=== PATIENT | female | born 1980 | race Caucasian/White ===

== ENCOUNTER → 2018-07-24 13:00 | Outpatient (CLI) | payer OTHER, SELFPAY | DX: Z23 Encounter for immunization (principal) | CPT/HCPCS: 90471; 90686 ==

== ENCOUNTER 2018-08-12 18:24 | Emergency (ER) | payer OTHER, SELFPAY ==
[2018-08-12 18:33] VITALS: BP 119/74; PULSE 70; RESP 16; TEMP 37; O2SAT 99; BMI 34.9
--- NOTE | 2018-08-12 18:37 | DI.RAD.S_ITS ---
PROCEDURE: XR FOOT RT MIN 3V INDICATIONS: fall TECHNIQUE: 3 views of the foot were acquired. COMPARISON: None. FINDINGS: Bones: No fractures or dislocations. No suspicious bony lesions. Soft tissues: No tibiotalar joint effusion. Achilles tendon appears normal. IMPRESSION: No acute fracture or dislocation of the right foot. Consider followup radiographs in 7-10 days if there is continued clinical concern. Dictated by: Emmanuel Myles M.D. on 08/12/2018 at 20:21 Approved by: Emmanuel Myles M.D. on 08/12/2018 at 20:23
--- NOTE | 2018-08-12 18:37 | DI.RAD.S_ITS ---
PROCEDURE: XR ANKLE RT MIN 3V INDICATIONS: fall TECHNIQUE: 3 views of the ankle were acquired. COMPARISON: None. FINDINGS: Bones: No fractures or dislocations. Ankle mortise is normally aligned. No suspicious bony lesions. Soft tissues: No tibiotalar joint effusion. Achilles tendon appears normal. IMPRESSION: No acute fracture or dislocation of the right ankle. Consider followup ankle radiographs in 7-10 days if there is continued clinical concern for fracture. Dictated by: Emmanuel Myles M.D. on 08/12/2018 at 20:18 Approved by: Emmanuel Myles M.D. on 08/12/2018 at 20:21
[2018-08-12 19:00] VITALS: PULSE 79
--- NOTE | 2018-08-12 19:10 | ED.LOWEXIN ---
HPI - Extremity Injury (Lower) General Chief Complaint: Extremity Injury, Lower Stated Complaint: right side ankle injury Time Seen by Provider: 08/12/18 18:35 Source: patient and family Mode of arrival: ambulatory Limitations: no limitations History of Present Illness HPI Narrative: 38-year-old female, nonsmoker otherwise healthy presents with chief complaint of right foot and ankle pain after an injury this afternoon. She was wearing socks at [employer] and slipped, while inverting her foot and ankle simultaneously crashing into her son is a roller skate with the same foot. She now has pain with ambulation and improvement with rest. She denies any numbness, tingling or weakness. She denies other injury and is otherwise well and free of complaint. She denies any history of right ankle pain or injury MD complaint: ankle injury Onset (ago): hour(s) Type of Injury: blunt and inversion Place: other Severity: moderate Severity scale (1-10): 5 Relieving factors: rest Exacerbating factors: weight bearing and movement Context: direct blow Associated symptoms: swelling Other symptoms: none Related Data Allergies Allergy/AdvReac Type Severity Reaction Status Date / Time No Known Drug Allergies Allergy Verified 08/12/18 18:33 Review of Systems Review of Systems All systems reviewed & are unremarkable except as noted in HPI and below Constitutional Denies chills, Denies fever(s), Denies lethargy and Denies weakness Eyes Denies change in vision, Denies eye discharge, Denies irritation and Denies loss of vision ENT Ears, Nose, Mouth, and Throat: Denies change in voice, Denies neck pain and Denies sore throat Cardiovascular Denies chest pain, Denies irregular heart rhythm, Denies lightheadedness, Denies palpitations, Denies dyspnea, Denies dyspnea on exertion and Denies orthopnea Respiratory Denies cough, Denies dyspnea, Denies dyspnea on exertion and Denies wheezing Gastrointestinal Gastrointestinal: Denies abdominal pain, Denies change in bowel habits, Denies diarrhea, Denies nausea and Denies vomiting Genitourinary Denies hematuria, Denies flank pain, Denies urinary incontinence and Denies urinary urgency Musculoskeletal Reports joint swelling, Reports limited range of motion and Denies neck pain Integumentary/Breasts Denies pruritus, Denies erythema, Denies rash and Denies wounds Neurologic Denies confusion, Denies loss of vision and Denies weakness Psychiatric Denies anxiety, Denies confusion, Denies depression, Denies homicidal ideation and Denies suicidal ideation Endocrine Denies palpitations Hematologic/Lymphatic Denies easy bruising Allergic/Immunologic Denies wheezing [facility] Social History Smoking Status: Never smoker Exam Narrative Exam Narrative: GEN: AOx3 and in mild distress EYES: Pupils are equal, round, and reactive to light and accommodation. Extraoccular muscles are intact bilaterally. There is no subconjunctival hemorrhage or exudate. CHEST: Lungs are clear to auscultation bilaterally and free of wheezes, rales, or rhonchi. Heart rate is regular rhythm, there are no murmurs, clicks, rubs, or gallops. There is no chest wall tenderness. ABD: Abdomen is soft and nontender. There is no guarding or rebound. Bowel sounds are normal in all 4 quadrants. There is no mass or organomegaly. EXT: full but painful range of motion of right ankle and foot. There is minimal swelling posterior to lateral malleolus. No obvious deformity. Closed, isolated and neurovascularly intact. SKIN: Warm, pink, and dry. No erythema or rash Initial Vital Signs Initial Vital Signs: Vital Signs Temperature 98.6 F 08/12/18 18:33 Pulse Rate 70 08/12/18 18:33 Respiratory Rate 16 08/12/18 18:33 Blood Pressure 119/74 08/12/18 18:33 Pulse Oximetry 99 08/12/18 18:33 Procedures Orthopedic Splinting/Casting Injury #1: Side: right Lower Extremity Injury Location: ankle Other Orthopedic Equipment: crutches Course Orders Ordered: ED Orders 08/12/18 18:37 XR ankle RT min 3V Stat XR foot RT min 3V Stat Vital Signs - 8 hr 08/12/18 18:33 08/12/18 19:00 08/12/18 20:15 Temperature 98.6 F Pulse Rate 70 79 Pulse Rate [Right Dorsalis Pedis] 79 Respiratory Rate 16 16 Blood Pressure 119/74 124/80 Pulse Oximetry 99 100 MDM - Extremity Injury (Lower) Differential Diagnosis Likely ankle sprain and strain Imaging Data Ankle / Foot Xray: Radiologist's impression: [address] [address] XRay Report Signed Patient: Kali Greene#: [id number] : 1980Acct:[id number] Age/Sex: 38 / FDate of Service: 08/12/18 Loc: ED Accession Number: [id number] Procedure: XR ankle RT min 3V Ordering Provider: Franc Estevez D.O. PROCEDURE: XR ANKLE RT MIN 3V INDICATIONS: fall TECHNIQUE: 3 views of the ankle were acquired. COMPARISON: None. FINDINGS: Bones: No fractures or dislocations. Ankle mortise is normally aligned. No suspicious bony lesions. Soft tissues: No tibiotalar joint effusion. Achilles tendon appears normal. IMPRESSION: No acute fracture or dislocation of the right ankle. Consider followup ankle radiographs in 7-10 days if there is continued clinical concern for fracture. Dictated by: Emmanuel Myles M.D. on 08/12/2018 at 20:18 Approved by: Emmanuel Myles M.D. on 08/12/2018 at 20:[address] [address] XRay Report Signed Patient: Kali Greene#: [id number] : 1980Acct:[id number] Age/Sex: 38 / FDate of Service: 08/12/18 Loc: ED Accession Number: [id number] Procedure: XR foot RT min 3V Ordering Provider: Franc Estevez D.O. PROCEDURE: XR FOOT RT MIN 3V INDICATIONS: fall TECHNIQUE: 3 views of the foot were acquired. COMPARISON: None. FINDINGS: Bones: No fractures or dislocations. No suspicious bony lesions. Soft tissues: No tibiotalar joint effusion. Achilles tendon appears normal. IMPRESSION: No acute fracture or dislocation of the right foot. Consider followup radiographs in 7-10 days if there is continued clinical concern. Dictated by: Emmanuel Myles M.D. on 08/12/2018 at 20:21 Approved by: Emmanuel Myles M.D. on 08/12/2018 at 20:23 Discharge Plan Departure Patient Disposition: Home Clinical Impression: Ankle sprain and strain Discharge Date/Time: 08/12/18 20:15 Interventions: ED Discharge Assessment Last Done: 08/12/18 20:15 Instructions: DI for Ankle Sprain Activity Restrictions/Additional Instructions: *You have been diagnosed with [ Right ankle sprain and contusion ] *What to do: *Take medications as directed: Tylenol and/or Motrin for pain and swelling *Follow up with your primary care provider in 2-3 days, call for an appointment. Let them know you were seen in the Emergency Department and that we ask that you be seen in follow up. avoid overuse but early range of motion is encouraged to improve outcomes. Rest, ice, compression, and elevation may help to feel better as well. *Return to ER if you should have any new, worsening or concerning symptoms
--- NOTE | 2018-08-12 19:17 | ED_ITS ---
HPI - Extremity Injury (Lower) General Chief Complaint: Extremity Injury, Lower Stated Complaint: right side ankle injury Time Seen by Provider: 08/12/18 18:35 Source: patient and family Mode of arrival: ambulatory Limitations: no limitations History of Present Illness HPI Narrative: 38-year-old female, nonsmoker otherwise healthy presents with chief complaint of right foot and ankle pain after an injury this afternoon. She was wearing socks at [employer] and slipped, while inverting her foot and ankle simultaneously crashing into her son is a roller skate with the same foot. She now has pain with ambulation and improvement with rest. She denies any numbness, tingling or weakness. She denies other injury and is otherwise well and free of complaint. She denies any history of right ankle pain or injury MD complaint: ankle injury Onset (ago): hour(s) Type of Injury: blunt and inversion Place: other Severity: moderate Severity scale (1-10): 5 Relieving factors: rest Exacerbating factors: weight bearing and movement Context: direct blow Associated symptoms: swelling Other symptoms: none Related Data Allergies Allergy/AdvReac Type Severity Reaction Status Date / Time No Known Drug Allergies Allergy Verified 08/12/18 18:33 Review of Systems Review of Systems All systems reviewed & are unremarkable except as noted in HPI and below Constitutional Denies chills, Denies fever(s), Denies lethargy and Denies weakness Eyes Denies change in vision, Denies eye discharge, Denies irritation and Denies loss of vision ENT Ears, Nose, Mouth, and Throat: Denies change in voice, Denies neck pain and Denies sore throat Cardiovascular Denies chest pain, Denies irregular heart rhythm, Denies lightheadedness, Denies palpitations, Denies dyspnea, Denies dyspnea on exertion and Denies orthopnea Respiratory Denies cough, Denies dyspnea, Denies dyspnea on exertion and Denies wheezing Gastrointestinal Gastrointestinal: Denies abdominal pain, Denies change in bowel habits, Denies diarrhea, Denies nausea and Denies vomiting Genitourinary Denies hematuria, Denies flank pain, Denies urinary incontinence and Denies urinary urgency Musculoskeletal Reports joint swelling, Reports limited range of motion and Denies neck pain Integumentary/Breasts Denies pruritus, Denies erythema, Denies rash and Denies wounds Neurologic Denies confusion, Denies loss of vision and Denies weakness Psychiatric Denies anxiety, Denies confusion, Denies depression, Denies homicidal ideation and Denies suicidal ideation Endocrine Denies palpitations Hematologic/Lymphatic Denies easy bruising Allergic/Immunologic Denies wheezing [facility], [facility] Social History Smoking Status: Never smoker Exam Narrative Exam Narrative: GEN: AOx3 and in mild distress EYES: Pupils are equal, round, and reactive to light and accommodation. Extraoccular muscles are intact bilaterally. There is no subconjunctival hemorrhage or exudate. CHEST: Lungs are clear to auscultation bilaterally and free of wheezes, rales, or rhonchi. Heart rate is regular rhythm, there are no murmurs, clicks, rubs, or gallops. There is no chest wall tenderness. ABD: Abdomen is soft and nontender. There is no guarding or rebound. Bowel sounds are normal in all 4 quadrants. There is no mass or organomegaly. EXT: full but painful range of motion of right ankle and foot. There is minimal swelling posterior to lateral malleolus. No obvious deformity. Closed , isolated and neurovascularly intact. SKIN: Warm, pink, and dry. No erythema or rash Initial Vital Signs Initial Vital Signs: Vital Signs Temperature 98.6 F 08/12/18 18:33 Pulse Rate 70 08/12/18 18:33 Respiratory Rate 16 08/12/18 18:33 Blood Pressure 119/74 08/12/18 18:33 Pulse Oximetry 99 08/12/18 18:33 Procedures Orthopedic Splinting/Casting Injury #1: Side: right Lower Extremity Injury Location: ankle Other Orthopedic Equipment: crutches Course Orders Ordered: ED Orders 08/12/18 18:37 XR ankle RT min 3V Stat XR foot RT min 3V Stat Vital Signs - 8 hr 08/12/18 18:33 08/12/18 19:00 08/12/18 20:15 Temperature 98.6 F Pulse Rate 70 79 Pulse Rate [Right Dorsalis Pedis] 79 Respiratory Rate 16 16 Blood Pressure 119/74 124/80 Pulse Oximetry 99 100 MDM - Extremity Injury (Lower) Differential Diagnosis Likely ankle sprain and strain Imaging Data Ankle / Foot Xray: Radiologist's impression: [address] [address] XRay Report Signed Patient: Kali Greene#: [id number] : 1980Acct:[id number] Age/Sex: 38 / FDate of Service: 08/12/18 Loc: ED Accession Number: [id number] Procedure: XR ankle RT min 3V Ordering Provider: Franc Estevez D.O. PROCEDURE: XR ANKLE RT MIN 3V INDICATIONS: fall TECHNIQUE: 3 views of the ankle were acquired. COMPARISON: None. FINDINGS: Bones: No fractures or dislocations. Ankle mortise is normally aligned. No suspicious bony lesions. Soft tissues: No tibiotalar joint effusion. Achilles tendon appears normal. IMPRESSION: No acute fracture or dislocation of the right ankle. Consider followup ankle radiographs in 7-10 days if there is continued clinical concern for fracture. Dictated by: Emmanuel Myles M.D. on 08/12/2018 at 20:18 Approved by: Emmanuel Myles M.D. on 08/12/2018 at 20:[address] [address] XRay Report Signed Patient: Kali Greene#: [id number] : 1980Acct:[id number] Age/Sex: 38 / FDate of Service: 08/12/18 Loc: ED Accession Number: [id number] Procedure: XR foot RT min 3V Ordering Provider: Franc Estevez D.O. PROCEDURE: XR FOOT RT MIN 3V INDICATIONS: fall TECHNIQUE: 3 views of the foot were acquired. COMPARISON: None. FINDINGS: Bones: No fractures or dislocations. No suspicious bony lesions. Soft tissues: No tibiotalar joint effusion. Achilles tendon appears normal. IMPRESSION: No acute fracture or dislocation of the right foot. Consider followup radiographs in 7-10 days if there is continued clinical concern. Dictated by: Emmanuel Myles M.D. on 08/12/2018 at 20:21 Approved by: Emmanuel Myles M.D. on 08/12/2018 at 20:23 Discharge Plan Departure Patient Disposition: Home Clinical Impression: Ankle sprain and strain Discharge Date/Time: 08/12/18 20:15 Interventions: ED Discharge Assessment Last Done: 08/12/18 20:15 Instructions: DI for Ankle Sprain Activity Restrictions/Additional Instructions: *You have been diagnosed with [ Right ankle sprain and contusion ] *What to do: *Take medications as directed: Tylenol and/or Motrin for pain and swelling *Follow up with your primary care provider in 2-3 days, call for an appointment. Let them know you were seen in the Emergency Department and that we ask that you be seen in follow up. avoid overuse but early range of motion is encouraged to improve outcomes. Rest, ice, compression, and elevation may help to feel better as well. *Return to ER if you should have any new, worsening or concerning symptoms
[2018-08-12 20:15] VITALS: BP 124/80; PULSE 79; RESP 16; O2SAT 100
== END 2018-08-12 20:15 | disposition home or self-care (01) ==
PROVIDERS: Emergency Provider Emergency Medicine
DX: S93.401A Sprain of unspecified ligament of right ankle, initial encounter (principal); W01.0XXA Fall on same level from slipping, tripping and stumbling without subsequent striking against object, initial encounter; Y93.51 Activity, roller skating (inline) and skateboarding
CPT/HCPCS: 73610; 73630; 99282; 99283

== ENCOUNTER → 2019-08-06 07:59 | Outpatient (CLI) | payer OTHER, SELFPAY | DX: Z23 Encounter for immunization (principal) | CPT/HCPCS: 90471; 90686 ==

== ENCOUNTER 2020-05-03 21:35 | Observation (INO) | payer OTHER, SELFPAY ==
[2020-05-03 21:50] VITALS: BP 146/71; PULSE 94; RESP 18; TEMP 37.3; O2SAT 99; BMI 37.2
[2020-05-03] MEDS: SODIUM CHLORIDE 0.9% 1,000 ML 1000 ML IV (22:12)
[2020-05-03] MEDS: ONDANSETRON 4 MG ODT PO (22:13)
[2020-05-03] MEDS: PANTOPRAZOLE 40 MG VIAL IV (22:13)
[2020-05-03] MEDS: HYDROMORPHONE 0.5 MG INJ IV (22:17)
[2020-05-03 22:19] LABS: Add Manual Diff / Slide Review NO; Basophils Absolute Auto 100 /uL (0-100); Basophils Percent Auto 0.4 % (0-2); Eosinophils Absolute Auto 0 /uL (0-450); Eosinophils Percent Auto 0.2 % (2-4); Hematocrit 36.2 % (36-46); Hemoglobin 11.7 g/dL (12.0-16.0); Lymphocytes Absolute Auto 1400 /uL (1100-4500); Lymphocytes Percent Auto 10.3 % (25-40); Mean Corpuscular HGB Conc 32.4 % (30-36); Mean Corpuscular Hemoglobin 23.8 PG (26-34); Mean Corpuscular Volume 73.4 fL (80-100); Monocytes Absolute Auto 700 /uL (0-900); Neutrophils Absolute Auto 11800 /uL (1500-7000); Neutrophils Percent Auto 84.1 % (50-75); Platelet Count 315 X10^3/uL (150-400); Red Blood Cell Count 4.93 X10^6/uL (4.0-5.2); Red Cell Distribution Width 15.2 % (11.6-14.8)
[2020-05-03 22:25] LABS: Alanine Aminotransferase 19 IU/L (<35); Albumin 4.5 g/dL (3.5-5.0); Albumin Globulin Ratio 1.3 (1.0-2.8); Alkaline Phosphatase 82 U/L (38-126); Aspartate Aminotransferase 29 IU/L (14-36); BUN Creatinine Ratio 23.3 (6-22); Bilirubin Total 0.4 mg/dL (0.2-1.3); Blood Urea Nitrogen 17 mg/dL (7-17); Calcium 9.8 mg/dL (8.4-10.2); Carbon Dioxide 20 mmol/L (22-32); Chloride 102 mmol/L (98-107); Estimated Glomerular Filt Rate > 60.0 mL/min (>60); Globulin 3.5 g/dL (1.7-4.1); Glucose 115 mg/dL (70-100); HEMOLYSIS < 15 (0-50); Lipase 155 U/L (23-300); Potassium 3.5 mmol/L (3.4-5.1); Sodium 135 mmol/L (137-145)
[2020-05-03 22:40] VITALS: BP 97/55; PULSE 72; O2SAT 100
--- NOTE | 2020-05-03 22:48 | DI.CT.S_ITS ---
PROCEDURE: CT ABDOMEN PELVIS W CON INDICATIONS: severe abdominal pain, nausea, vomiting, fever TECHNIQUE: After the administration of intravenous contrast, 5 mm thick sections acquired from the diaphragm to the symphysis. 5 mm coronal and sagittal reformats were acquired. For radiation dose reduction, the following was used: automated exposure control, adjustment of mA and/or kV according to patient size. COMPARISON: None. FINDINGS: Image quality: Excellent. ABDOMEN: Lung bases: Lung bases are clear. Heart size is normal. Solid organs: Liver is normal in size and enhancement. Gallbladder surgically absent. Biliary system is non dilated. Pancreas enhances normally. Spleen is normal in size and enhancement. No adrenal nodules. Kidneys demonstrate normal size and enhancement, without hydronephrosis. Peritoneum and bowel: Postsurgical changes seen in the stomach and small bowel. There is right lower quadrant suspicious periappendiceal inflammatory changes. No discrete abscess is seen. There are shotty right lower quadrants presumably reactive lymph nodes. There is probable air seen within the proximal appendiceal lumen however the distal portion appears inflamed and slightly enlarged although not well visualized No free fluid or air. The rectum is largely collapsed and otherwise unremarkable. Nodes and vessels: No retroperitoneal or mesenteric adenopathy by size criteria. Aorta and inferior vena cava are normal in size. Small paraumbilical fat containing hernia. PELVIS: Genitourinary: Bladder wall thickness is normal. Miscellaneous: No inguinal hernias or adenopathy. Bones: No suspicious bony lesions. Bilateral chronic L5 pars defects. There is grade 1 anterolisthesis of L5 on S1. No vertebral body compression fractures. IMPRESSION: Probable acute appendicitis. Please correlate clinically and with laboratory data. Findings concordant with the preliminary study interpretation provided at the time of the exam. Additional chronic and incidental findings as above. Dictated by: Jorge Gonsalez M.D. on 05/04/2020 at 8:11 Approved by: Jorge Gonsalez M.D. on 05/04/2020 at 8:18
[2020-05-03 23:00] VITALS: BP 126/66; PULSE 75; RESP 16; O2SAT 99
[2020-05-03 23:25] VITALS: BP 121/63; PULSE 67; RESP 16; TEMP 37.7; O2SAT 100
[2020-05-04] VITALS (17 sets, daily range): BP systolic 92–124; BP diastolic 53–73; PULSE 60–92; RESP 10–18; TEMP 36.8–37.5; O2SAT 95–100; BMI 37.2
--- NOTE | 2020-05-04 | PATH_ITS ---
[facility] Accession Number: [id number] . 01 Material submitted: . appendix - APPENDIX . 01 Clinical history: . VOMITING, BODY ACHES, FEVER . 02 Diagnosis: Appendix, Appendectomy: Marked acute appendicitis with serositis. No evidence of neoplasm. MRV 05/06/2020 1329 Local . 02 Electronically signed: . Alvarado Frausto MD, PhD, Pathologist NPI- [id number] . 01 Gross description: . Specimen A is received in formalin, labeled with patient identification and appendix. It consists of a vermiform appendix measuring 5.0 cm in length and up to 1.1 cm in diameter. The attached yellow-king and lobulated mesoappendiceal adipose tissue is 5.2 x 1.9 x 1.7 cm. The patent proximal end is inked blue. The serosa is pink to white-king and dull. It is diffusely covered by white exudate up to 3.5 cm in length from the proximal end. Sectioning reveals a pinpoint patent lumen with a wall thickness up to 0.5 cm. The cut surfaces are otherwise unremarkable. Machine Tester sections are submitted in two cassettes. . Summary of sections: A1: Proximal and digital media representative cross-sections of appendix, four pieces. A2: The entire bisected appendiceal tip, two pieces. ([id number]) /MRV 05/05/2020 1419 Local . 02 Pathologist provided ICD-10: K35.80 . 02 CPT . 429436 Performed at: 01 [facility] [address] [facility], [place], [place] [id number] MD Tang Oscar MD Phone: [phone] Performed at: 02 [facility] [address] [place] [id number] MD Nataly Krueger MD Phone: [phone]
--- NOTE | 2020-05-04 00:15 | ED_ITS ---
HPI - Abdominal Pain General Chief Complaint: Abdominal Pain Stated Complaint: vomiting,body aches,fever Time Seen by Provider: 05/03/20 21:35 Source: patient Mode of arrival: Ambulatory Limitations: no limitations History of Present Illness HPI narrative: 39-year-old female nonsmoker presents with her in the chief complaint some generalized abdominal pain and midline back pain associated with subjective fever and nausea and vomiting over the course of the day. She denies runny nose, sore throat or cough. She denies any chest pain or shortness of breath. She states it feels like she did when her gallbladder became infected years ago. She states her pain is worse when she moves and improves with rest. She denies any constipation or diarrhea. She denies dysuria, frequency or urgency. She denies any obvious exposure to persons known to have coronavirus MD complaint: abdominal pain Onset (ago): hour(s) Pain Consistency: constant Location: diffuse Severity: moderate Quality: cramping and aching Radiation: back Migration to: no migration Relieving factors: rest Exacerbating factors: movement Associated symptoms: nausea, vomiting and fever Related Data Home Medications Medication Instructions Recorded Confirmed No Known Home Medications 05/04/20 05/04/20 Allergies Allergy/AdvReac Type Severity Reaction Status Date / Time No Known Drug Allergies Allergy Verified 08/12/18 18:33 Review of Systems Constitutional Constitutional: Reports chills, Denies fatigue, Reports fever(s), Denies frequent falls, Denies lethargy and Denies weakness Eyes Eyes: Denies change in vision, Denies eye discharge, Denies irritation and Denies loss of vision ENT Ears, Nose, Mouth, and Throat: Denies change in voice, Denies dizziness, Denies neck pain, Denies sore throat and Denies throat swelling Cardiovascular Cardiovascular: Denies chest pain, Denies irregular heart rhythm, Denies lightheadedness, Denies palpitations, Denies dyspnea, Denies dyspnea on exertion and Denies orthopnea Respiratory Respiratory: Denies cough, Denies dyspnea, Denies dyspnea on exertion and Denies wheezing Gastrointestinal Gastrointestinal: Reports abdominal pain, Denies change in bowel habits, Denies diarrhea, Reports nausea and Reports vomiting Musculoskeletal Musculoskeletal: Denies neck pain and Denies numbness Integumentary/Breasts Skin/Breast: Denies pruritus, Denies erythema, Denies rash and Denies wounds Neurologic Neurologic: Denies behavioral changes, Denies confusion, Denies dizziness, Toni es frequent falls, Denies loss of vision, Denies numbness and Denies weakness Psychiatric Psychiatric: Denies anxiety, Denies behavioral changes, Denies confusion, Denies depression, Denies homicidal ideation and Denies suicidal ideation Endocrine Endocrine: Denies fatigue, Denies flushing and Denies palpitations Hematologic/Lymphatic Hematologic/Lymphatic: Denies easy bruising Allergic/Immunologic Allergic/Immunologic: Denies urticaria, Denies throat swelling and Denies wheezing Patient History Social History Smoking Status: Never smoker Smoking Status: Never smoker alcohol intake frequency: a few times a week Substance Use Type: does not use Exam Narrative Exam Narrative: GENERAL: [39] year old patient appears stated age. Well- nourished, well-developed patient, in mild distress. Obviously in pain HEAD: Atraumatic. Normocephalic. EYES: Pupils equal round and reactive. Extraocular motions intact. No scleral icterus. No injection or drainage. ENT: Nose without bleeding, purulent drainage. Throat without erythema, tonsillar hypertrophy or exudate. Airway patent. NECK: Trachea midline. Non tender CARDIOVASCULAR: Regular rate and rhythm without murmurs, gallops, or rubs. RESPIRATORY: Clear to auscultation. Breath sounds equal bilaterally. No wheezes, rales, or rhonchi. GASTROINTESTINAL: Abdomen soft, general tenderness, perhaps worse in the periumbilical and suprapubic region, nondistended. EXTREMITIES: No edema or joint tenderness. BACK: Nontender without deformity or crepitance. No flank tenderness. NEURO: AOx3. SKIN: No rash or erythema of visible areas Initial Vital Signs Initial Vital Signs: Vital Signs Temperature 99.1 F 05/03/20 21:50 Pulse Rate 94 H 05/03/20 21:50 Respiratory Rate 18 05/03/20 21:50 Blood Pressure 146/71 H 05/03/20 21:50 Pulse Oximetry 99 05/03/20 21:50 Course Orders Ordered: ED Orders 05/03/20 22:05 Complete Blood Count AUTO DIFF Stat Comprehensive Metabolic Panel Stat Lipase Stat 05/03/20 22:48 CT abdomen pelvis w con Stat Hydromorphone HCl (Dilaudid) 0.5 mg IV Q4H PRN PRN Reason: Pain, Severe (7-10) Piperacillin/Tazobactam/Dextrose (Zosyn) 3.375 gm in 50 mls @ 100 mls/hr IV Q6H MANAN Last Admin: 05/04/20 00:28 Dose: 100 mls/hr Documented by: HASMUKH Discontinued Medications Hydromorphone HCl (Dilaudid) 0.5 mg IV NOW ONE Stop: 05/03/20 22:04 Last Admin: 05/03/20 22:17 Dose: 0.5 mg Documented by: HASMUKH Sodium Chloride (Normal Saline 0.9%) 1,000 mls @ 1,000 mls/hr IV BOLUS ONE Stop: 05/03/20 23:02 Last Infusion: 05/04/20 00:00 Dose: 0 mls/hr Documented by: Infusion: 05/03/20 23:25 Dose: 1,000 mls/hr Documented by: Infusion: 05/03/20 23:10 Dose: 0 mls/hr Documented by: Admin: 05/03/20 22:12 Dose: 1,000 mls/hr Documented by: HASMUKH Ondansetron HCl (Zofran Odt) 4 mg PO NOW ONE Stop: 05/03/20 22:04 Last Admin: 05/03/20 22:13 Dose: 4 mg Documented by: HASMUKH Pantoprazole Sodium (Protonix) 40 mg IV NOW ONE Stop: 05/03/20 22:04 Last Admin: 05/03/20 22:13 Dose: 40 mg Documented by: HASMUKH Consultations Consultation #1: call to Dr. Vazquez, happy to accept, requests Zosyn, NPO, admission and likely surgery tomorrow Vital Signs Vital signs: Vital Signs - 8 hr 05/03/20 21:50 05/03/20 22:40 05/03/20 23:00 Temperature 99.1 F Pulse Rate 94 H 72 75 Respiratory Rate 18 16 Blood Pressure 146/71 H Blood Pressure [Left Arm] 97/55 L 126/66 Pulse Oximetry 99 100 99 05/03/20 23:25 Temperature 99.8 F H Pulse Rate 67 Respiratory Rate 16 Blood Pressure Blood Pressure [Left Arm] 121/63 Pulse Oximetry 100 MDM - Abdominal Pain Lab Data Result diagrams: 05/03/20 22:05 05/03/20 22:05 Labs: Lab Results 05/03/20 05/03/20 Range/Units 22:05 22:05 WBC 14.0 H (4.5-11.0) X10^3/uL RBC 4.93 (4.0-5.2) X10^6/uL Hgb 11.7 L (12.0-16.0) g/dL Hct 36.2 (36-46) % MCV 73.4 L (80-100) fL MCH 23.8 L (26-34) PG MCHC 32.4 (30-36) % RDW 15.2 H (11.6-14.8) % Plt Count 315 (150-400) X10^3/uL Neut % (Auto) 84.1 H (50-75) % Lymph % (Auto) 10.3 L (25-40) % [place] % (Auto) 5.0 (3-14) % Eos % (Auto) 0.2 L (2-4) % Baso % (Auto) 0.4 (0-2) % Neut # (Auto) 93408 H (2999-4924) /uL Lymph # (Auto) 1400 (1666-2352) /uL [place] # (Auto) 700 (0-900) /uL Eos # (Auto) 0 (0-450) /uL Baso # (Auto) 100 (0-100) /uL Sodium 135 L (137-145) mmol/L Potassium 3.5 (3.4-5.1) mmol/L Chloride 102 (98-107) mmol/L Carbon Dioxide 20 L (22-32) mmol/L BUN 17 (7-17) mg/dL Creatinine 0.73 (0.52-1.04) mg/dL Estimated GFR > 60.0 (>60) mL/min BUN/Creatinine Ratio 23.3 H (6-22) Glucose 115 H (70-100) mg/dL Calcium 9.8 (8.4-10.2) mg/dL Total Bilirubin 0.4 (0.2-1.3) mg/dL AST 29 (14-36) IU/L ALT 19 (<35) IU/L Alkaline Phosphatase 82 (38-126) U/L Total Protein 8.0 (6.3-8.2) g/dL Albumin 4.5 (3.5-5.0) g/dL Globulin 3.5 (1.7-4.1) g/dL Albumin/Globulin Ratio 1.3 (1.0-2.8) Lipase 155 (23-300) U/L Point of care testing: Point of Care Testing Test Results Negative Urine Dip Bedside Urine Glucose Negative Bedside Urine Bilirubin - Negative Bedside Urine Ketone +++ 80 Urine Specific [place] 1.015 Bedside Urine Occult Blood - Negative Bedside Urine pH 7.5 Bedside Urine Protein - Negative Bedside Urine Urobilinogen - Negative Bedside Urine Nitrite - Negative Bedside Urine Leukocytes - Negative Esterase Imaging Data CT scan - abdomen/pelvis: Radiologist's Impression: Acute Appendicitis Discharge Plan Departure Patient Disposition: Admitted As Inpatient Clinical Impression: Acute appendicitis Admit Date/Time: 05/04/20 00:23 Admit Provider: Ivan Vazquez
[2020-05-04] MEDS: PIPERACILLIN-TAZO 3.375 GM/50 ML FROZ.PIGGY IV ×3 (00:28→09:36)
[2020-05-04 01:15] LABS: COVID19 -Nasal RAPID Negative (Negative)
--- NOTE | 2020-05-04 01:56 | PC.NURSE ---
Addendum entered by Lucian Langley R.N. 05/04/20 05:18: 0515: Resting in bed. Remains NPO. Pt states Dilaudid is effective for relieving her pain. Addendum entered by Lucian Langley R.N. 05/04/20 02:58: 0255: Pt states her pain is increased. Medicated with Dilaudid 0.5mg IV. Original Note: Hydrator Note: 0105: Admitted to ICU room 228 as floor care patient. IV in place in lt AC with NS infusing at 125cc/hr. Pt is alert, oriented X3. She states that her abdomen is tender and rates her pain at 3/10. Vital signs are stable.
[2020-05-04] MEDS: HYDROMORPHONE 0.5 MG INJ IV (02:47)
[2020-05-04] MEDS: SODIUM CHLORIDE 0.9% 1,000 ML 125 ML IV (02:48)
--- NOTE | 2020-05-04 08:37 | PC.NURSE ---
Addendum entered by Jorge Yeh R.N. 05/04/20 14:52: Rec'd pt back to room from PACU 1200. VSS. Pt up to BR to void. Requesting food/something to drink. Denies pain. Advanced diet as tolerated per order. Pt tolerated 100% of general diet for lunch. Reports her abd pain is much better compared to pre op. Only reports mild soreness of abd. She is hopeful to go home today. 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 Pt off to pre op at this time. VSS. No distress.
[2020-05-04] MEDS: LACTATED RINGERS 1,000 ML 42 ML IV (08:53)
--- NOTE | 2020-05-04 09:14 | P.HP_ITS ---
History of Present Illness History of Present Illness Date Patient Seen: 05/04/20 Time Patient Seen: 07:14 Chief complaint: vomiting,body aches,fever Narrative: The patient is a woman who developed back pain yesterday afternoon. She thought she had worked too much in the garden but the pain progressed and became lower abdominal pain. She had a subjective fever. She came to emergency room was evaluated and brought in for treatment of acute appendicitis. She did have vomiting and nausea. She has not had this pain before. Pain increases with movement. It is mostly a dull ache. Patient History Surgical History (Updated 05/04/20 @ 09:20 by Ivan Vazquez MD) History of (Acute) History of laparoscopic cholecystectomy (Acute) History of Luis Miguel-en-Y gastric bypass (Acute) Family & Social History Social History: household members spouse,children Prior Living Arrangements House Safety & Behavioral: Feels Safe in Current Yes Environment Been Physically Hurt or No Threatened By a Person Suicidal Ideation Description None Suicide Plan Description No Plan Tobacco & Substance use: Tobacco type cigarettes Smoking Status Former smoker alcohol intake current alcohol intake frequency a few times a month Substance Use Type does not use Meds Home Medications and Allergies Home Medications Medication Instructions Recorded Confirmed Type No Known Home Medications 05/04/20 05/04/20 History Allergies Allergy/AdvReac Type Severity Reaction Status Date / Time No Known Drug Allergies Allergy Verified 05/04/20 08:54 Review of Systems Review of Systems Narrative: Patient denies visual difficulties double vision pain arise earache sore throats. No trouble swallowing. No tooth aches. No hearing problems. Patient denies cough cold or asthma. Patient denies chest pain heart problems or murmurs. Patient denies black or bloody bowel movements. No seizures or blackouts. No anxiety or depression. No unusual bruising or bleeding. She is generally healthy on no medication. She has lost 110 lb after her gastric bypass was performed. No problems with her thyroid pancreas she is aware of. Exam Vital Signs (past 8 hours): - 05/04/20 05:00 05/04/20 07:26 05/04/20 08:45 Temperature 98.6 F 98.3 F 98.3 F Pulse Rate 78 84 79 Respiratory Rate 18 16 16 Blood Pressure 92/58 L 113/60 103/67 Pulse Oximetry 99 98 100 Oxygen Delivery Method Room Air Oxygen Flow Rate 0 Narrative Exam Narrative: Cooperative no apparent distress. Eyes are nonicteric. Pupils equal round reactive to light. Conjunctivae are pink. Ears without lesion. Nasal septum midline. Oral mucosa pink moist without lesion. No splits in her lips. Neck is supple. There are no nodes neck supraclavicular areas. Trachea is midline mobile. Thyroid is not enlarged. No masses or tenderness in the neck or thyroid. Lungs are clear to auscultation without rales or rhonchi. Heart regular rate and rhythm without murmur gallop. Abdomen is protuberant soft. Obvious weight loss. No palpable masses. Tender across the lower abdomen from mid lower abdomen to the right lower quadrant. The left abdomen is nontender though there is some referred pain. Patient has no guarding. She is alert and oriented x3. Speech rate and content are appropriate. Affect is appropriate. Skin 2+ turgor. No visible were some lesion is appreciated. Objective Imaging CT scan - abdomen: My impression: Inflammation in the right lower quadrant in the region the appendix. Radiologist's impression: Reviewed Labs Result Diagrams: 05/03/20 22:05 05/03/20 22:05 Labs: Laboratory Results - last 24 hr 05/03/20 05/03/20 05/04/20 22:05 22:05 00:15 WBC 14.0 H RBC 4.93 Hgb 11.7 L Hct 36.2 MCV 73.4 L MCH 23.8 L MCHC 32.4 RDW 15.2 H Plt Count 315 Neut % (Auto) 84.1 H Lymph % (Auto) 10.3 L [place] % (Auto) 5.0 Eos % (Auto) 0.2 L Baso % (Auto) 0.4 Neut # (Auto) 87913 H Lymph # (Auto) 1400 [place] # (Auto) 700 Eos # (Auto) 0 Baso # (Auto) 100 Sodium 135 L Potassium 3.5 Chloride 102 Carbon Dioxide 20 L BUN 17 Creatinine 0.73 Estimated GFR > 60.0 BUN/Creatinine Ratio 23.3 H Glucose 115 H Calcium 9.8 Total Bilirubin 0.4 AST 29 ALT 19 Alkaline Phosphatase 82 Total Protein 8.0 Albumin 4.5 Globulin 3.5 Albumin/Globulin Ratio 1.3 Lipase 155 COVID-19 PCR Negative Assessment & Plan Assessment & Plan narrative: Patient post multiple operations now medically healthy who has physical findings laboratory evaluation and CT scan all consistent with acute appendicitis. The possibility of alternate diagnoses is entertained and discussed with the patient. I discussed laparoscopic removal of her appendix and indicated procedures with her. Risks of bleeding infection hernia were discussed. Postoperative limitations expected at this time were discussed. All questions were answered and she wished to proceed. She is covered negative.
--- NOTE | 2020-05-04 09:24 | PM.PREOP ---
Pre-operative Note COVID-19 COVID-19 status: Negative Result date/Date tested (Pos, Neg/Pending): 05/04/20 Interval Note History & Physical reviewed/Exam performed by Physician: Yes Changes to H&P: No
[2020-05-04] MEDS: BUPIVACAINE 0.5% (PF) VIAL 30 ML INJ (10:00)
--- NOTE | 2020-05-04 10:03 | SUR.OPER ---
Supine on padded OR bed, head on pillow, arms secured on padded arm boards at <90 degrees abduction, legs uncrossed, safety belt at thigh, tape over blanket over lower legs.
--- NOTE | 2020-05-04 11:10 | PM.OP.1 ---
Operative Date/Time/Diagnoses Date of procedure: 05/04/20 Time of procedure: 11:00 Pre-op diagnosis: Acute appendicitis Post-op diagnosis: same Procedure & Clinicians Procedure: Laparoscopic appendectomy Same procedure as scheduled: Yes Indications: Lower abdominal pain elevated white count tenderness and a CT consistent with acute appendicitis Surgeon: Ivan Vazquez Click Yes if Unassisted: Yes Anesthesia Type: General Operative Notes Findings: Acute appendicitis without perforation Closure Type: primary Specimen(s): other (Appendix) Prosthetic devices, grafts, tissues, transplants, or devices: None Applied: catheter (Used intraoperatively. Albert removed postop.) Estimated Blood Loss (mL): 5 Blood products transfused: none Procedure in detail: Patient is placed supine on the operating room table underwent general endotracheal anesthesia. She was prepped and draped in the usual fashion. A curvilinear incision was made beneath the umbilicus and carried down under direct vision in the peritoneal cavity. Stay sutures of 0 Vicryl were placed in the fascia. A 12 mm port was inserted and the abdomen is insufflated. Two additional ports 5 mm in size were placed between the pubis and the umbilicus and in the left lower quadrant. The patient was repositioned on the OR table and the appendix identified. The mesoappendix was divided using cautery and blunt dissection. The base was cleared and an 0 PDS looped tie was placed at the base. Clamp was placed distal to this and the appendix was transected between the clamp and a tie. The mucosa was cauterized after placing the appendix in a bag and removing it without any spillage. The right abdomen and pelvis were irrigated and suctioned free of fluid. There did not appear to be any ongoing bleeding at completion. The ports were all removed. The stay sutures were tied after placing a 200 PDS suture between them in the fascia. The wounds were all irrigated and 4 0 Vicryl subcuticular stitches were used to close the skin. Mastisol and Steri-Strips and Band-Aids were applied and the patient was awakened extubated and taken recovery room good condition. Complications: none Post-operative Condition: stable Disposition: PACU
--- NOTE | 2020-05-04 11:17 | SUR.PHASEI ---
Addendum entered by Aida Meng R.N. 05/04/20 11:18: states that throat doesn't really hurt, it's just scratchy Original Note: 1109 Dozing intermittently, arouses easily to voice, resp even and regular, skin warm and dry. Dr. Vazquez spoke to patient. She c/o sore throat, ice chips given.
--- NOTE | 2020-05-04 11:20 | SUR.PHASEI ---
Report off to Santos Davis RN
[2020-05-04] MEDS: OXYCODONE/ACETAMINOPHEN 5/325 TABLET 1 TAB PO (11:32)
--- NOTE | 2020-05-04 12:00 | SUR.PHASEI ---
Pt transferred to room 228 via bed. Report given to ROMELIA Loza prior to transfer. Pt's vital signs stable and pain controlled; see flowsheet documentation for details. ROMELIA Loza at bedside upon arrival to room 228; handoff assessment completed. Denia to assume care of pt at this time.
--- NOTE | 2020-05-04 14:45 | CM.DANOTE ---
DCP/Assessment: Reviewed chart. Patient is a 39yr old female admitted to [facility] with abdominal pain. No PCP listed. Primary payor is 1)Endy Licona. Attempted to meet with patient this AM. Patient off floor for surgery for appendicitis. Patient completely I in all ADL's. Patient employed at [employer] and resides with family in [place]. CM team will attempt visit either later today or tomorrow. Anticipate patient will d/c home without any d/c planning needs. P: Home when stable. PEGGY Fenton Discharge Planning/Care Management CM Discharge Assessment Start: 05/04/20 14:35 Freq: Status: Active Protocol: Document 05/04/20 14:35 KJS (Rec: 05/04/20 14:45 KJS [id number]) Discharge Planning Assessment Assigned Masking Machine Feeder PEGGY Fenton Contact Information Kerwin Greene (spouse) [phone] Advance Directives? No Advance Directives on File No History Provided By Medical Record Prior Living Arrangements House Household Members spouse,children Type of transporation used prior to Drives own vehicle admit Independent with ADL's Yes Barriers to Discharge No Discharge Plan Home Transportation Arrangement Family to provide transport when patient medically stable. Additional Comment Do not anticipate any d/c planning needs at this time. Review Status In Process Next Review Type Continued Stay Review Document 05/04/20 14:45 KJS (Rec: 05/04/20 14:45 KJS [id number]) Discharge Planning Assessment Assigned Masking Machine Feeder PEGGY Fenton Contact Information Kerwin Greene (spouse) [phone] Advance Directives? No Advance Directives on File No History Provided By Medical Record Prior Living Arrangements House Household Members spouse,children Type of transporation used prior to Drives own vehicle admit Independent with ADL's Yes Barriers to Discharge No Discharge Plan Home Transportation Arrangement Family to provide transport when patient medically stable. Additional Comment Do not anticipate any d/c planning needs at this time. Review Status In Process Next Review Type Continued Stay Review
--- NOTE | 2020-05-04 18:56 | P.DS_ITS ---
History of Present Illness History of Present Illness Chief complaint: vomiting,body aches,fever Narrative: The patient is a woman who developed back pain yesterday afternoon. She thought she had worked too much in the garden but the pain progressed and became lower abdominal pain. She had a subjective fever. She came to emergency room was evaluated and brought in for treatment of acute appendicitis. She did have vomiting and nausea. She has not had this pain before. Pain increases with movement. It is mostly a dull ache. Discharge Providers Provider Date of admission: 05/04/20 00:23 Discharge Date: 05/04/20 Consults: 05/04/20 12:23 Consult to Discharge Planning Routine Comment: Discharge provider: Ivan Vazquez MD Summary Hospital Course Discharge Diagnosis: Acute appendicitis without perforation Obesity BMI of 37.3 status post gastric bypass with 110 lb weight loss to date. Status at Discharge Cognitive/behavioral status at discharge: oriented Functional status at discharge: independent ambulation Overall status at discharge: patient is progressing back to baseline Exam Vital Signs (past 8 hours): - 05/04/20 11:04 05/04/20 11:09 05/04/20 11:14 Temperature 98.3 F Pulse Rate 91 H 73 71 Respiratory Rate 10 L 15 13 Blood Pressure 106/73 104/71 108/70 Pulse Oximetry 95 99 99 05/04/20 11:19 05/04/20 11:24 05/04/20 11:39 Temperature Pulse Rate 74 63 64 Respiratory Rate 14 14 12 Blood Pressure 106/67 105/69 105/72 Pulse Oximetry 99 99 99 05/04/20 12:00 05/04/20 12:30 05/04/20 13:00 Temperature 98.2 F 98.2 F 98.2 F Pulse Rate 67 60 80 Respiratory Rate 15 16 15 Blood Pressure 109/62 96/53 L 108/64 Pulse Oximetry 99 99 96 05/04/20 14:00 05/04/20 15:00 Temperature 98.4 F 98.2 F Pulse Rate 92 H 73 Respiratory Rate 16 15 Blood Pressure 110/59 L 104/60 Pulse Oximetry 96 97 Oxygen Delivery Method Room Air Oxygen Flow Rate 0 Objective Labs Result Diagrams: 05/03/20 22:05 05/03/20 22:05 Labs: Laboratory Results - last 24 hr 05/03/20 05/03/20 05/04/20 22:05 22:05 00:15 WBC 14.0 H RBC 4.93 Hgb 11.7 L Hct 36.2 MCV 73.4 L MCH 23.8 L MCHC 32.4 RDW 15.2 H Plt Count 315 Neut % (Auto) 84.1 H Lymph % (Auto) 10.3 L [place] % (Auto) 5.0 Eos % (Auto) 0.2 L Baso % (Auto) 0.4 Neut # (Auto) 74950 H Lymph # (Auto) 1400 [place] # (Auto) 700 Eos # (Auto) 0 Baso # (Auto) 100 Sodium 135 L Potassium 3.5 Chloride 102 Carbon Dioxide 20 L BUN 17 Creatinine 0.73 Estimated GFR > 60.0 BUN/Creatinine Ratio 23.3 H Glucose 115 H Calcium 9.8 Total Bilirubin 0.4 AST 29 ALT 19 Alkaline Phosphatase 82 Total Protein 8.0 Albumin 4.5 Globulin 3.5 Albumin/Globulin Ratio 1.3 Lipase 155 COVID-19 PCR Negative Discharge Plan Discharge Plan Patient Disposition: Home Discharge comment: You had her appendix removed laparoscopically. It did not appear to be perforated. The pain medication may constipate you. If it does take a laxative like milk of magnesia. Discharge orders & Medications Prescriptions: New hydrocodone-acetaminophen [Doyline] 7.5-325 mg tablet 1 tab PO Q4H PRN (Reason: painful procedure) Qty: 14 RF: 0 No Action No Known Home Medications RF: 0 Follow up/Referrals: Ivan Vazquez MD [Physician] - 2 Weeks (Please call my office and make an appointment to see me in about 7-14 days. If you need to reach a doctor please call our office. If it is after hours listen to the entire message and at the end you will be connected to the page [place] machine operator who will page the doctor on-call for our practice.) Diet/Activity/Treatments Diet: Diet as Tolerated Activity: Do not lift over 10 lb or strain for the next 4 weeks. You may walk. Do not drive until you are pain-free off medication. Skin/Wound/Dressing Care Report to your healthcare provider any signs of infection, such as:: chills, fever, night sweats, increased pain, unusual drainage and unusual redness Visit Report/Discharge Packet Instructions: DI for an Appendectomy Discharge Data Attending Provider: Ivan Vazquez Admit Date/Time: 05/04/20 00:23
[2020-05-04] MEDS: SENNOSIDES 8.6 MG TABLET 17.2 MG PO (19:23)
--- NOTE | 2020-05-04 19:55 | PC.NURSE ---
Patient given discharge instructions- look out for s/s of infection, follow up with Dr. Miranda, no heavy lifting. IV removed, no tele. Discharged home via private vehicle with spouse.
== END 2020-05-04 19:45 | disposition home or self-care (01) ==
LOC: ED 22:03 → AC 05-04 00:55 → ICU 05-04 07:13 → AC 05-04 11:42 → ICU 05-04 11:42
PROVIDERS: Admitting Provider Specialist; Emergency Provider Emergency Medicine; Referring Provider Emergency Medicine; Visit Provider Specialist
PROC: 0DTJ4ZZ Resection of Appendix, Percutaneous Endoscopic Approach (ICD-10-PCS; CPT 44970; principal; 2020-05-04 09:45)
DX: K35.80 Unspecified acute appendicitis (principal); R10.9 Unspecified abdominal pain; Z11.59 Encounter for screening for other viral diseases
CPT/HCPCS: 44970; 36415; 74177; 80053; 81003; 81025; 83690; 85025; 87635; 96361; 96374; 96375; 96376; 99220; 99285; G0378; C9113; J0330; J1100; J1170; J1885; J2250; J2405; J2543; J2704; J3010; Q9967

== ENCOUNTER → 2020-08-13 | Outpatient (CLI) | payer OTHER, SELFPAY ==
[2020-05-04 01:18] VITALS: BMI 37.2
== END ==
PROVIDERS: Referring Provider Internal Medicine; Visit Provider Internal Medicine
DX: Z23 Encounter for immunization (principal)
CPT/HCPCS: 90471; 90686

== ENCOUNTER → 2020-09-29 11:50 | Outpatient (CLI) | payer OTHER, SELFPAY ==
[2020-05-04 01:18] VITALS: BMI 37.2
[2020-09-29 12:25] LABS: COVID19 -Nasal RAPID Negative (Negative)
== END ==
PROVIDERS: Visit Provider Nurse Practitioner
DX: Z03.818 Encounter for observation for suspected exposure to other biological agents ruled out (principal); R05 Cough
CPT/HCPCS: 87635

== ENCOUNTER → 2020-11-12 12:30 | Outpatient (CLI) | payer OTHER, SELFPAY ==
[2020-05-04 01:18] VITALS: BMI 37.2
[2020-11-12] MEDS: COVID-19 VACC(MODERNA-1)/PF 100 MCG/0.5 ML VIAL IM (12:34)
== END ==
PROVIDERS: Visit Provider Internal Medicine
DX: Z23 Encounter for immunization (principal)
CPT/HCPCS: 0011A; 91301

== ENCOUNTER → 2020-12-09 16:02 | Outpatient (CLI) | payer OTHER, SELFPAY ==
[2020-05-04 01:18] VITALS: BMI 37.2
[2020-12-09] MEDS: COVID-19 VACC #2, MRNA(MOD) 100 MCG/0.5 ML VIAL IM (16:14)
== END ==
PROVIDERS: Visit Provider Internal Medicine
DX: Z23 Encounter for immunization (principal)
CPT/HCPCS: 0012A; 91301

== ENCOUNTER → 2021-07-15 08:09 | Outpatient (CLI) | payer OTHER, SELFPAY ==
[2021-07-15 07:52] VITALS: BMI 37.2
[2021-07-15 08:37] LABS: COVID19 -Nasal RAPID Negative (Negative)
== END ==
PROVIDERS: Family Provider Internal Medicine; Visit Provider Nurse Practitioner
DX: R05 Cough (principal); R09.81 Nasal congestion; R09.89 Other specified symptoms and signs involving the circulatory and respiratory systems; J02.9 Acute pharyngitis, unspecified; Z20.822 Contact with and (suspected) exposure to COVID-19
CPT/HCPCS: 87635

== ENCOUNTER → 2021-09-17 08:31 | Outpatient (CLI) | payer OTHER, SELFPAY ==
[2021-07-15 07:52] VITALS: BMI 37.2
[2021-09-17] MEDS: COVID-19 VACC #3, MRNA(MOD) 50 MCG/0.25 ML VIAL IM (10:19)
== END ==
PROVIDERS: PCP Family Medicine; Visit Provider Internal Medicine
DX: Z23 Encounter for immunization (principal)
CPT/HCPCS: 0013A; 91301

== ENCOUNTER → 2021-09-30 13:24 | Outpatient (CLI) | payer OTHER, SELFPAY ==
[2021-07-15 07:52] VITALS: BMI 37.2
== END ==
PROVIDERS: PCP Family Medicine; Referring Provider Internal Medicine; Visit Provider Internal Medicine
DX: Z23 Encounter for immunization (principal)
CPT/HCPCS: 90471; 90686

== ENCOUNTER → 2021-10-15 08:10 | Outpatient (CLI) | payer OTHER, SELFPAY ==
[2021-07-15 07:52] VITALS: BMI 37.2
== END ==
PROVIDERS: PCP Family Medicine; Visit Provider Nurse Practitioner Family
DX: N39.0 Urinary tract infection, site not specified (principal)
CPT/HCPCS: 87077; 87086; 87186

== ENCOUNTER → 2021-10-20 11:33 | Outpatient (CLI) | payer OTHER, SELFPAY ==
[2021-07-15 07:52] VITALS: BMI 37.2
[2021-10-20 13:56] LABS: COVID19 -Nasal RAPID Negative (Negative)
== END ==
PROVIDERS: PCP Family Medicine; Visit Provider Physician Assistant
DX: Z20.822 Contact with and (suspected) exposure to COVID-19 (principal); R06.7 Sneezing; R09.81 Nasal congestion
CPT/HCPCS: 87635

== ENCOUNTER → 2022-08-30 15:56 | Outpatient (CLI) | payer OTHER, SELFPAY ==
[2022-09-19 15:55] VITALS: BMI 37.2
== END ==
PROVIDERS: PCP Family Medicine; Referring Provider Internal Medicine; Visit Provider Internal Medicine
DX: Z23 Encounter for immunization (principal)
CPT/HCPCS: 90471; 90686

== ENCOUNTER → 2023-05-19 07:44 | Outpatient (CLI) | payer OTHER, SELFPAY ==
[2022-09-19 15:55] VITALS: BMI 37.2
--- NOTE | 2023-05-19 | DI.MG.S_ITS ---
BILATERAL DIGITAL SCREENING MAMMOGRAM 3D/2D WITH CAD: 05/19/2023 CLINICAL: Routine screening. Baseline exam. No prior exams were available for comparison. There are scattered areas of fibroglandular density in both breasts (category b / 25%-50% glandular tissue). Current study was also evaluated with a Computer Aided Detection (CAD) system. No significant masses, calcifications, or other findings are seen in either breast. IMPRESSION: NEGATIVE There is no mammographic evidence of malignancy. A 1 year screening mammogram is recommended. Based on the Tyrer Cuzick model (a risk assessment model) the patient's lifetime risk is 7.6% and her 10 year risk is 0.9%. According to the ACR, ACS, and NCCN guidelines, an annual breast MRI exam along with mammogram is recommended if the patient's lifetime risk is 20% or greater. This exam was interpreted at Station ID: [id number]. NOTE: For mammograms, a report in lay terms will be sent to the patient. Approximately 15% of breast malignancies will not be visualized mammographically. In the management of a palpable breast mass, a negative mammogram must not discourage biopsy of a clinically suspicious lesion. Electronically Signed By: Han [email or web address]/[email or web address]:05/19/2023 08:33:13 letter sent: Normal Exam ACR BI-RADS Category 1: Negative 3341F
== END ==
PROVIDERS: PCP Family Medicine; Referring Provider Family Medicine; Visit Provider Family Medicine
DX: Z12.31 Encounter for screening mammogram for malignant neoplasm of breast (principal)
CPT/HCPCS: 77063; 77067

== ENCOUNTER → 2023-09-01 15:23 | Outpatient (CLI) | payer OTHER, SELFPAY ==
[2023-07-04 07:44] VITALS: BMI 37.2
== END ==
PROVIDERS: PCP Family Medicine; Referring Provider Family Medicine; Visit Provider Family Medicine
DX: Z23 Encounter for immunization (principal)
CPT/HCPCS: 90471; 90686

== ENCOUNTER → 2024-01-03 08:29 | Outpatient (CLI) | payer OTHER, SELFPAY ==
[2024-01-01 09:12] VITALS: BMI 37.2
[2024-01-03 14:13] LABS: Add Manual Diff / Slide Review NO; Basophils Absolute Auto 100 /uL (0-100); Basophils Percent Auto 0.9 % (0-2); Eosinophils Absolute Auto 100 /uL (0-450); Eosinophils Percent Auto 1.3 % (2-4); Hematocrit 37.6 % (36-46); Hemoglobin 12.1 g/dL (12.0-16.0); Lymphocytes Absolute Auto 2700 /uL (1100-4500); Lymphocytes Percent Auto 29.5 % (25-40); Mean Corpuscular HGB Conc 32.2 % (30-36); Mean Corpuscular Hemoglobin 23.8 PG (26-34); Mean Corpuscular Volume 73.7 fL (80-100); Monocytes Absolute Auto 600 /uL (0-900); Monocytes Percent Auto 6.6 % (3-14); Neutrophils Absolute Auto 5600 /uL (1500-7000); Neutrophils Percent Auto 61.7 % (50-75); Platelet Count 392 X10^3/uL (150-400); Red Cell Distribution Width 16.6 % (11.6-14.8)
[2024-01-03 14:18] LABS: Hemoglobin A1C% w Est Avg Glu 5.2 % (4.0-6.0)
[2024-01-03 14:33] LABS: Alanine Aminotransferase 18 IU/L (<35); Albumin 4.4 g/dL (3.5-5.0); Albumin Globulin Ratio 1.2 (1.0-2.8); Alkaline Phosphatase 79 U/L (38-126); Aspartate Aminotransferase 25 IU/L (14-36); Bilirubin Total 0.6 mg/dL (0.2-1.3); Blood Urea Nitrogen 13 mg/dL (7-17); Calcium 9.1 mg/dL (8.4-10.2); Carbon Dioxide 24 mmol/L (22-32); Chloride 106 mmol/L (98-107); Estimated Glomerular Filt Rate > 60 mL/min (>60); Globulin 3.8 g/dL (1.7-4.1); Glucose 62 mg/dL (70-100); HEMOLYSIS < 15 (0-50); Potassium 3.6 mmol/L (3.4-5.1); Sodium 140 mmol/L (137-145); Total Protein 8.2 g/dL (6.3-8.2)
[2024-01-03 15:03] LABS: TSH w/ Reflex to FT4 1.35 uIU/mL (0.47-4.68)
== END ==
PROVIDERS: PCP Family Medicine; Referring Provider Family Medicine; Visit Provider Family Medicine
DX: R00.2 Palpitations (principal); E66.9 Obesity, unspecified; G47.62 Sleep related leg cramps
CPT/HCPCS: 36415; 80053; 83036; 84443; 85025

== ENCOUNTER → 2024-01-05 11:23 | Outpatient (CLI) | payer OTHER, SELFPAY ==
[2024-01-01 09:12] VITALS: BMI 37.2
[2024-01-05 13:31] LABS: HEMOLYSIS < 15 (0-50); Iron 44 ug/dL (37-170)
[2024-01-05 13:42] LABS: Percent Iron Saturation 12 % (15-50); Total Iron Binding Capacity 368 ug/dL (265-497); Transferrin 302 mg/dL (206-381)
[2024-01-05 14:08] LABS: Ferritin 5 ng/mL (6-137)
== END ==
PROVIDERS: PCP Family Medicine; Referring Provider Family Medicine; Visit Provider Family Medicine
DX: R71.8 Other abnormality of red blood cells (principal)
CPT/HCPCS: 36415; 82728; 83540; 83550

== ENCOUNTER → 2024-08-21 12:15 | Outpatient (CLI) | payer OTHER, SELFPAY ==
[2024-01-01 09:12] VITALS: BMI 37.2
--- NOTE | 2024-08-21 | DI.MG.S_ITS ---
BILATERAL DIGITAL SCREENING MAMMOGRAM 3D/2D WITH CAD: 08/21/2024 CLINICAL: Routine screening. Comparison is made to exam dated: 05/19/2023 mammogram - [facility]. There are scattered areas of fibroglandular density (category b / 25%-50% glandular tissue). Current study was also evaluated with a Computer Aided Detection (CAD) system. No significant masses, calcifications, or other findings are seen in either breast. There has been no significant interval change. IMPRESSION: NEGATIVE There is no mammographic evidence of malignancy. A 1 year screening mammogram is recommended. Based on the Tyrer Cuzick model (a risk assessment model) the patient's lifetime risk is 7.6% and her 10 year risk is 1.1%. According to the ACR, ACS, and NCCN guidelines, an annual breast MRI exam along with mammogram is recommended if the patient's lifetime risk is 20% or greater. This exam was interpreted at Station ID: [id number]. NOTE: For mammograms, a report in lay terms will be sent to the patient. Approximately 15% of breast malignancies will not be visualized mammographically. In the management of a palpable breast mass, a negative mammogram must not discourage biopsy of a clinically suspicious lesion. Electronically Signed By: Michael rushing/stephane:08/21/2024 17:13:18 letter sent: Normal Exam ACR BI-RADS Category 1: Negative
== END ==
PROVIDERS: PCP Family Medicine; Referring Provider Family Medicine; Visit Provider Family Medicine
DX: Z12.31 Encounter for screening mammogram for malignant neoplasm of breast (principal)
CPT/HCPCS: 77063; 77067

== ENCOUNTER → 2024-08-23 20:31 | Outpatient (CLI) | payer OTHER, SELFPAY ==
[2024-01-01 09:12] VITALS: BMI 37.2
== END ==
PROVIDERS: PCP Family Medicine; Referring Provider Internal Medicine; Visit Provider Internal Medicine
DX: Z23 Encounter for immunization (principal)
CPT/HCPCS: 90471; 90656